=== PATIENT | male | born 1990 | race Caucasian/White ===

== ENCOUNTER 2017-07-06 15:04 | Emergency (ER) | payer OTHER ==
[~2017-07-06] VITALS: Ht 177.8 cm; Wt 77.3 kg
[2017-07-06 15:05] VITALS: BP 114/80
[2017-07-06] MEDS ORDERED: IBUP-1114 PO (15:17)
[2017-07-06] MEDS ORDERED: DAYLIQ3 PO (15:17)
[2017-07-06] MEDS ORDERED: FLON1SPR (15:53)
[2017-07-06] MEDS ORDERED: ZOFR4TAB3 PO (15:53)
[2017-07-06] MEDS ORDERED: AUGM875T28 PO (15:53)
== END 2017-07-06 15:58 | disposition home or self-care (01) ==
LOC: M ED 15:04
DX: H66.002 Acute suppurative otitis media without spontaneous rupture of ear drum, left ear (principal)

== ENCOUNTER 2017-10-17 20:15 | Emergency (ER) | payer OTHER ==
[2017-10-17] MEDS: PENICILLIN V POTASSIUM 500 MG TAB PO (22:24)
[2017-10-17] MEDS: predniSONE 20 MG TAB PO (22:25)
[2017-10-17] MEDS: IBUPROFEN 600 MG TAB PO (22:25)
== END 2017-10-17 22:46 | disposition home or self-care (01) ==
LOC: M ED 20:15
DX: J02.9 Acute pharyngitis, unspecified (principal); F17.200 Nicotine dependence, unspecified, uncomplicated
CPT/HCPCS: 99283